=== PATIENT | male | born 1955 | race Asian ===

== ENCOUNTER 2018-12-03 00:04 | Inpatient (IN) | payer MEDICAID ==
[~2018-12-03] VITALS: Ht 175.3 cm; Wt 98.0 kg
[2018-12-03] MEDS ORDERED: ACETAMINOPHEN 325MG TABLET PO STA (00:57)
[2018-12-03] MEDS ORDERED: VANCOMYCIN 1 G PREMIX 200 ML IV ONE (01:00)
[2018-12-03] MEDS ORDERED: PIPERACILLIN/TAZ 3.375G PREMIX 50 ML IV ONE (01:00)
[2018-12-03] MEDS ORDERED: SODIUM CHLORIDE 0.9% 1000ML BAG (SEPSIS BOLUS) IV ONE (01:00)
[2018-12-03 01:38] LABS: HEMATOCRIT. 43.8 % (42.0-52.0); HEMOGLOBIN. 14.5 g/dL (14.0-18.0); MEAN CORPUSCULAR HEMOGLOBIN 29.2 pg (28.0-32.0); MEAN CORPUSCULAR VOLUME 88.1 fL (80.0-94.0); MEAN PLATELET VOLUME 8.2 fl (7.4-10.4); PLATELET 157 x1000/uL (130-400); RED BLOOD CELL COUNT 4.97 mill/uL (4.7-6.1)
[2018-12-03 01:46] LABS: CHLORIDE 105 mEq/L (98-107)
[2018-12-03 02:01] LABS: ATYPICAL LYMPHOCYTES 1; PLATELET ESTIMATE NORMAL
[2018-12-03] MEDS ORDERED: HYDROCODONE/ACETAMINOPHEN 5/325MG TABLET PO PRN (03:30)
[2018-12-03] MEDS ORDERED: GUAIFENESIN 200MG/10ML SUGAR FREE UDC PO PRN (03:30)
[2018-12-03] MEDS ORDERED: ONDANSETRON HCL 4MG/2ML INJ IV PRN (03:30)
[2018-12-03] MEDS ORDERED: DOCUSATE SODIUM 100MG CAPSULE PO PRN (03:30)
[2018-12-03] MEDS ORDERED: CLONIDINE 0.1MG TABLET PO PRN (03:30)
[2018-12-03] MEDS ORDERED: ACETAMINOPHEN 325MG TABLET PO PRN (03:30)
[2018-12-03] MEDS ORDERED: KCL 10MEQ/50ML PREMIX 50 ML IV NR (05:00)
[2018-12-03] MEDS: SODIUM CHLORIDE 0.9% 1,000 ML IV SCH ×2 (07:30→17:54)
[2018-12-03] MEDS ORDERED: ENOXAPARIN 40MG/0.4ML SYR SUBCUT SCH (09:00)
[2018-12-03] MEDS ORDERED: ASPIRIN 81MG EC TABLET PO SCH (09:00)
[2018-12-03 10:00] VITALS: BP 147/76
[2018-12-03 12:00] VITALS: BP 147/76
[2018-12-03] MEDS ORDERED: DEXTROSE 50% WATER 50ML SYRINGE IV PRN (12:45)
[2018-12-03] MEDS: ENOXAPARIN 40MG/0.4ML SYR SUBCUT SCH (13:01)
[2018-12-03 13:03] LABS: CREATINE KINASE 213 IU/L (39-308)
[2018-12-03 13:04] LABS: CREATINE KINASE MB FRACTION < 1.0 ng/mL (0.5-3.6)
[2018-12-03] MEDS: INSULIN LISPRO 100 UNITS/ML SUBCUT SCH ×3 (13:05→22:24)
[2018-12-03] MEDS ORDERED: LIP40 MT (13:43)
[2018-12-03] MEDS ORDERED: METF-416 MT (13:43)
[2018-12-03] MEDS ORDERED: ASPI-1159 PO (13:43)
[2018-12-03 16:00] VITALS: BP 161/76
[2018-12-03] MEDS: BLOOD SUGAR DIAGNOSTIC STRIP TEST SCH ×2 (17:54→20:57)
[2018-12-03 18:20] LABS: CREATINE KINASE 183 IU/L (39-308)
[2018-12-03 18:21] LABS: CREATINE KINASE MB FRACTION < 1.0 ng/mL (0.5-3.6)
[2018-12-03 20:00] VITALS: BP 131/64
[2018-12-04] VITALS: BP 116/55
[2018-12-04 04:00] VITALS: BP 149/76
[2018-12-04] MEDS: SODIUM CHLORIDE 0.9% 1,000 ML IV SCH (06:49)
[2018-12-04] MEDS: BLOOD SUGAR DIAGNOSTIC STRIP TEST SCH (06:49)
[2018-12-04 08:00] VITALS: BP 145/74
[2018-12-04 08:06] LABS: BASOPHILS % 0.2 % (0.0-2.0); EOSINOPHILS % 3.4 % (0.0-5.0); HEMATOCRIT. 40.3 % (42.0-52.0); HEMOGLOBIN. 13.5 g/dL (14.0-18.0); LYMPHOCYTES % 10.7 % (20.0-50.0); MEAN CORPUSCULAR HEMOGLOBIN 29.5 pg (28.0-32.0); MEAN CORPUSCULAR VOLUME 87.9 fL (80.0-94.0); MEAN PLATELET VOLUME 8.7 fl (7.4-10.4); MONOCYTES % 8.8 % (2.0-8.0); NEUTROPHILS % 76.9 % (40.0-76.0); PLATELET 149 x1000/uL (130-400); RED BLOOD CELL COUNT 4.58 mill/uL (4.7-6.1); RED CELL DISTRIBUTION WIDTH 13.9 % (11.6-14.6)
[2018-12-04] MEDS ORDERED: ASPIRIN 81MG EC TABLET PO SCH (09:00)
[2018-12-04 09:09] LABS: CHLORIDE 105 mEq/L (98-107)
[2018-12-04 09:22] LABS: LDL CHOLESTEROL 39 mg/dL (5-100)
[2018-12-04] MEDS: ENOXAPARIN 40MG/0.4ML SYR SUBCUT SCH (09:41)
[2018-12-04] MEDS: INSULIN LISPRO 100 UNITS/ML SUBCUT SCH (11:06)
[2018-12-04 11:30] LABS: HDL CHOLESTEROL 30 mg/dL (40-59)
[2018-12-04 11:32] LABS: T4 FREE 1.09 ng/dL (0.76-1.46)
[2018-12-04 12:47] VITALS: BP 145/74
== END 2018-12-04 15:07 | disposition home or self-care (01) | DRG 723 ==
LOC: ER 00:04 → 6EST 03:26 → EDBEDREQ 03:29 → EDBEDREQSVC 03:29 → EDBEDREQTM 03:29 → SUPCPDRO 03:29 → ENRESERV 08:48
PROVIDERS: ADMIT Hospitalist; ATTEND Hospitalist
DX: B34.9 Viral infection, unspecified (principal); E11.649 Type 2 diabetes mellitus with hypoglycemia without coma; D72.825 Bandemia
CPT/HCPCS: 36415; 71045; 80061; 82550; 82553; 82962; 83605; 84439; 84443; 84484; 93005; 93306; 93970; 96365; 99285; J1650; J1815; J2543; J3370; J3480; J7030